=== PATIENT | male | born 1990 | race Caucasian/White ===

== ENCOUNTER → 2017-01-05 | Outpatient (CLI) | payer OTHER ==
--- NOTE | 2017-01-05 12:54 | RADIOLOGY REPORT (SQ) ---
EXAM DESCRIPTION: MRI RT UPPER JOINT WITHOUT COMPLETED DATE/TIME: 01/05/2017 12:12 pm REASON FOR STUDY: RT SHOULDER PAIN M25.511 PAIN IN RIGHT SHOULDER COMPARISON: None. TECHNIQUE: Right shoulder images acquired and stored on PACS. Multiplanar imaging to include fat sen sitive sequences such as T1, water sensitive sequences such as FST2/STIR, cartilage sensitive sequenc es such as FSPD/gradient-echo sequences. LIMITATIONS: None. FINDINGS: BONE MARROW AND CORTEX: No worrisome bone lesions or marrow replacement. No occult fractur es. JOINT OR BURSAL EFFUSION: No significant glenohumeral joint effusion. Trace fluid in the subacromial /subdeltoid bursa. GLENO-HUMERAL ARTICULATION: Normal articulation. No subluxation. No cystic change. No osteophytes or cartilage loss. ACROMION AND AC JOINT: Type 2 No down-sloping or distal spur. Sub-acromial space maintained. No sig nificant AC joint arthropathy. ROTATOR CUFF AND INTERVAL: There is mild tendinopathy in the supra and infraspinatus tendons, without full-thickness tear. Mild increased intrinsic signal is seen on coronal images 9-12 along the dista l supraspinatus tendon and anterior half of the infraspinatus tendon. Subscapularis is intact. No rotator interval tear. There is rotator interval thickening suggesting adhesive capsulitis. LABRUM AND BICEPS LABRAL COMPLEX: Intra-articular long head biceps tendon is high in signal from te ndinopathy. Short head biceps tendon intact. On the axial images, particularly the axial gradient e cho images there is a superior labral tear extending into the anterior and posterior labrum. No para labral cysts. REMAINDER OF LABRUM AND IGHL : No gross tear or paralabral cyst formation. Labral evaluation is less than optimal without joint distention. There is thickening of IGHL suggesting adhesive capsulitis. PERIARTICULAR AND ADJACENT SOFT TISSUES: No masses or abnormal nodes. OTHER: No other significant finding. IMPRESSION: Mild supra and infraspinatus tendinopathy Intra-articular long head biceps tendinopathy Superior labral tear at the biceps attachment Findings suggesting adhesive capsulitis. TECHNICAL DOCUMENTATION: JOB ID: [id number]- All Rights Reserved
== END ==
LOC: RAD 10:30
PROVIDERS: ATTEND Clinical Nurse Specialist Adult Health
DX: M25.511 Pain in right shoulder (principal); M75.91 Shoulder lesion, unspecified, right shoulder